=== PATIENT | male | born 2000 | race Caucasian/White ===

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

== ENCOUNTER 2022-07-11 19:38 | Emergency (ER) | payer SELFPAY ==
--- OUTSIDE RECORDS SUMMARY | 2022-07-11 19:42 | XMS REPORT | Continuity of Care Document ---
:2000 Author Organization [facility] t Address [address] [facility] [facility] [address] [place] [address] Support Name Relationship Address Phone Adriana Fam Grandparent [address] [phone] [place] [address] Care Team Providers Name Role Phone SHELLIE GARCIA Attending Clinician Unavailable Jesi Connolly DO Attending Clinician Doctor Unassigned, [place] Attending Clinician Unavailable José Carcamo Attending Clinician José HALL Attending Clinician Unavailable BABAR DUKE Attending Clinician Unavailable BABAR DUKE Admitting Clinician Unavailable Payers Payer Name Policy Type Policy Number Effective Date Expiration Date S youce [place]ICAID [place] [id number] 2018 00:00:00 [facility] [id number] 2018 00:00:00 [facility] [id number] 2019 00:00:00 Problems Condition Condition Condition Status Onset Resolution Last Treating Co mments Source Name Details Category Date Date Treatment Clinician Date Elevated Elevated Disease Active Unive rs bilirubin bilirubin 1- ity of 00:00: [address] Allergies, Adverse Reactions, Alerts Allergy Allergy Status Severity Reaction(s) Onset Inactive Treating Comm ents Source Name Type Date Date Clinician NO KNOWN Drug Active Univers ALLERGIE Class ity of [place] [facility] Social History Social Habit Start Date Stop Date Quantity Comments Source Exposure to Not sure [facility] SARS-CoV-2 (event) Medica l Branch Sex Assigned At [facility] Medical Branch Alcohol intake 2019-09-04 2019-09-04 [facility] 00:00:00 00:00:00 Medical Branch Tobacco Comment 2018-05-23 2018-05-23 Vapes. [facility] [place] 00:00:00 00:00:00 Medical Branch Smoking Status Start Date Stop Date Source Current every day smoker 2019-09-04 00:00:00 Uni versity of [facility] Medications Ordered Filled Start Stop Current Ordering Indication Dosage Frequency Signature Comments Components Source Medication Medication Date Date Medication? Clinician (SIG) Name Name ondansetron 2019-2019- No 4mg 4 mg, Slow Univers (ZOFRAN 09-03- IV Push, ity of (PF)) 14:15: 13:16 ONCE, 1 [place] injection 4 00 :00 dose, Beth Med ical mg 09/04/19 at Branch 0915, VANESSA NaCl 0.9% 2019- No 1000mL at 999 Uni vers (NS) bolus 09-03 mL/hr, ity of infusion 13:15: 13:59 1,000 mL, [place] as 1,000 mL 00 :00 IV Medical Infusion, [place] ONCE, 1 dose, Beth 09/04/19 at 0815, VANESSA ondansetron 2020-0 Yes [id number] 4mg Take 1 Univers (ZOFRAN 5-07 tablet by ity of ODT) 4 mg 00:00: mouth [place] disintegrat 00 every 8 Medic al ing tablet (eight) Branch hours as needed for Nausea and Vomiting (N/V). ondansetron 2019-0 2019- No 4mg 4 mg, Univ ers (ZOFRAN-ODT 05-23 Oral, ity of ) 23:00: 21:51 ONCE, 1 [place] disintegrat 00 :00 dose, Fri Med ical ing tablet 05/23/19 at [facility] 4 mg 1700, Routine ondansetron 2020-0 Yes [id number] 4mg Take 1 Univers (ZOFRAN 1-24 tablet by ity of ODT) 4 mg 00:00: mouth [place] disintegrat 00 every 8 Medic al ing tablet (eight) Branch hours as needed for Nausea and Vomiting (N/V). ondansetron 2020-0 Yes [id number] 4mg Take 1 Univers (ZOFRAN 1-24 tablet by ity of ODT) 4 mg 00:00: mouth [place] disintegrat 00 every 8 Medic al ing tablet (eight) Branch hours as needed for Nausea and Vomiting (N/V). ondansetron 2020- No [id number] 4mg Take 1 Univers (ZOFRAN 1-24 05-07 tablet by ity of ODT) 4 mg 00:00: 00:00 mouth [place] disintegrat 00 :00 every 8 Medic al ing tablet (eight) Branch hours as needed for Nausea and Vomiting (N/V). ibuprofen Yes [id number] 800mg Take 1 U nivers 800 mg 7-21 tablet by ity of tablet 00:00: mouth [place] 00 every 8 Medical (eight) Branch hours as needed (PAIN). ibuprofen Yes [id number] 800mg Take 1 U nivers 800 mg 7-21 tablet by ity of tablet 00:00: mouth [place] 00 every 8 Medical (eight) Branch hours as needed (PAIN). ibuprofen Yes [id number] 800mg Take 1 U nivers 800 mg 7-21 tablet by ity of tablet 00:00: mouth [place] 00 every 8 Medical (eight) Branch hours as needed (PAIN). ibuprofen 2019- No [id number] 800mg Take 1 Univers 800 mg 7-21 05-07 tablet by ity of tablet 00:00: 00:00 mouth [place] 00 :00 every 8 Medical (eight) Branch hours as needed (PAIN). Immunizations Ordered Immunization Filled Immunization Date Status Commen ts Source Name Name Influenza Virus 2018-05-23 Completed Universit y of [facility] 3+ 00:00:00 [facility] Influenza Virus 2018-05-23 Completed Universit y of [facility] IM 3+ 00:00:00 [facility] Influenza Virus 2018-05-23 Completed Universit y of Vaccine [facility] IM 3+ 00:00:00 [facility] Influenza Virus 2018-05-23 Completed Universit y of Vaccine [facility] IM 3+ 00:00:00 [facility] HEPATITIS A 2013-01-08 Completed University of 00:00:00 [facility] HPV 2013-01-08 Completed University of 00:00:00 [facility] HEPATITIS A 2013-01-08 Completed University of 00:00:00 [facility] HPV 2013-01-08 Completed University of 00:00:00 [facility] HEPATITIS A 2013-01-08 Completed University of 00:00:00 [facility] HPV 2013-01-08 Completed University of 00:00:00 [facility] HEPATITIS A 2013-01-08 Completed University of 00:00:00 [facility] HPV 2013-01-08 Completed University of 00:00:00 [facility] HEPATITIS A 2012-07-02 Completed University of 00:00:00 [facility] HPV 2012-07-02 Completed University of 00:00:00 [facility] Varicella 2012-07-02 Completed University of (varivax)(chicken 00:00:00 [place] M [facility]ical pox) Branch HEPATITIS A 2012-07-02 Completed University of 00:00:00 [facility] HPV 2012-07-02 Completed University of 00:00:00 [facility] Varicella 2012-07-02 Completed University of (varivax)(chicken 00:00:00 [place] M [facility]ical pox) Branch HEPATITIS A 2012-07-02 Completed University of 00:00:00 [facility] HPV 2012-07-02 Completed University of 00:00:00 [facility] Varicella 2012-07-02 Completed University of (varivax)(chicken 00:00:00 [place] M [place] pox) [place] HEPATITIS A 2012-07-02 Completed University of 00:00:00 [facility] HPV 2012-07-02 Completed University of 00:00:00 [facility] Varicella 2012-07-02 Completed University of (varivax)(chicken 00:00:00 [place] M [facility]ical pox) [place] Influenza Virus 2012-01-17 Completed Universit y of Vaccine 00:00:00 [facility] MMR 2012-01-17 Completed University of 00:00:00 [facility] Influenza Virus 2012-01-17 Completed Universit y of Vaccine 00:00:00 [facility] MMR 2012-01-17 Completed University of 00:00:00 [facility] Influenza Virus 2012-01-17 Completed Universit y of Vaccine 00:00:00 [facility] MMR 2012-01-17 Completed University of 00:00:00 [facility] Influenza Virus 2012-01-17 Completed Universit y of Vaccine 00:00:00 [facility] MMR 2012-01-17 Completed University of 00:00:00 [facility] Meningococcal 2011-12-15 Completed University of Vaccine 00:00:00 [facility] MMR 2011-12-15 Completed University of 00:00:00 [facility] Polio (IPV/OPV) 2011-12-15 Completed Universit y of 00:00:00 [facility] Tdap 2011-12-15 Completed University of 00:00:00 [facility] Varicella 2011-12-15 Completed University of (varivax)(chicken 00:00:00 [place] M [facility]ical pox) Branch Meningococcal 2011-12-15 Completed University of Vaccine 00:00:00 [facility] MMR 2011-12-15 Completed University of 00:00:00 [facility] Polio (IPV/OPV) 2011-12-15 Completed Universit y of 00:00:00 [facility] Tdap 2011-12-15 Completed University of 00:00:00 [facility] Varicella 2011-12-15 Completed University of (varivax)(chicken 00:00:00 [place] M [facility]ical pox) Branch Meningococcal 2011-12-15 Completed University of Vaccine 00:00:00 [facility] MMR 2011-12-15 Completed University of 00:00:00 [facility] Polio (IPV/OPV) 2011-12-15 Completed Universit y of 00:00:00 [facility] Tdap 2011-12-15 Completed University of 00:00:00 [facility] Varicella 2011-12-15 Completed University of (varivax)(chicken 00:00:00 [place] M edical pox) Branch Meningococcal 2011-12-15 Completed University of Vaccine 00:00:00 [facility] MMR 2011-12-15 Completed University of 00:00:00 [facility] Polio (IPV/OPV) 2011-12-15 Completed Universit y of 00:00:00 [facility] Tdap 2011-12-15 Completed University of 00:00:00 [facility] Varicella 2011-12-15 Completed University of (varivax)(chicken 00:00:00 [place] M edical pox) Branch H1n1 Vaccine 2009-05-11 Completed University o f 00:00:00 [facility] H1n1 Vaccine 2009-05-11 Completed University o f 00:00:00 [facility] H1n1 Vaccine 2009-05-11 Completed University o f 00:00:00 [facility] H1n1 Vaccine 2009-05-11 Completed University o f 00:00:00 [facility] H1n1 Vaccine 2009-04-07 Completed University o f 00:00:00 [facility] H1n1 Vaccine 2009-04-07 Completed University o f 00:00:00 [facility] H1n1 Vaccine 2009-04-07 Completed University o f 00:00:00 [facility] H1n1 Vaccine 2009-04-07 Completed University o f 00:00:00 [facility] Pneumococcal 7 2000 Completed University of Conjugate, PCV7 00:00:00 [place] [facility] ical (Prevnar7) Branch HIB 4 Dose Schedule 2000 Completed Unive rsity of 00:00:00 [facility] Hep B, Adol or Pedi 2000 Completed Unive rsity of Dosage 00:00:00 [facility] Pneumococcal 7 2000 Completed University of Conjugate, PCV7 00:00:00 [place] Med ical (Prevnar7) Branch HIB 4 Dose Schedule 2000 Completed Unive rsity of 00:00:00 [facility] Hep B, Adol or Pedi 2000 Completed Unive rsity of Dosage 00:00:00 [facility] Pneumococcal 7 2000 Completed University of Conjugate, PCV7 00:00:00 [place] Med ical (Prevnar7) Branch HIB 4 Dose Schedule 2000 Completed Unive rsity of 00:00:00 [facility] Hep B, Adol or Pedi 2000 Completed Unive rsity of Dosage 00:00:00 [facility] Pneumococcal 7 2000 Completed University of Conjugate, PCV7 00:00:00 [place] Med ical (Prevnar7) Branch HIB 4 Dose Schedule 2000 Completed Unive rsity of 00:00:00 [facility] Hep B, Adol or Pedi 2000 Completed Unive rsity of Dosage 00:00:00 [facility] DTAP 2000 Completed University of 00:00:00 [facility] DTAP 2000 Completed University of 00:00:00 [facility] DTAP 2000 Completed University of 00:00:00 [facility] DTAP 2000 Completed University of 00:00:00 [facility] Pneumococcal 7 2000 Completed University of Conjugate, PCV7 00:00:[address] [facility] ical (Prevnar7) Branch Polio (IPV/OPV) 2000 Completed Universit y of 00:00:00 [facility] DTAP 2000 Completed University of 00:00:00 [facility] DTAP 2000 Completed University of 00:00:00 [facility] HIB 4 Dose Schedule 2000 Completed Unive rsity of 00:00:00 [facility] Pneumococcal 7 2000 Completed University of Conjugate, PCV7 00:00:00 [place] Med ical (Prevnar7) Branch Polio (IPV/OPV) 2000 Completed Universit y of 00:00:00 [facility] HIB 4 Dose Schedule 2000 Completed Unive rsity of 00:00:00 [facility] Pneumococcal 7 2000 Completed University of Conjugate, PCV7 00:00:00 [place] Med ical (Prevnar7) Branch Polio (IPV/OPV) 2000 Completed Universit y of 00:00:00 [facility] DTAP 2000 Completed University of 00:00:00 [facility] HIB 4 Dose Schedule 2000 Completed Unive rsity of 00:00:00 [facility] Pneumococcal 7 2000 Completed University of Conjugate, PCV7 00:00:00 [place] Med ical (Prevnar7) Branch Polio (IPV/OPV) 2000 Completed Universit y of 00:00:00 [facility] DTAP 2000 Completed University of 00:00:00 [facility] HIB 4 Dose Schedule 2000 Completed Unive rsity of 00:00:00 [facility] Pneumococcal 7 2000 Completed University of Conjugate, PCV7 00:00:00 [place] Med ical (Prevnar7) Branch Polio (IPV/OPV) 2000 Completed Universit y of 00:00:00 [facility] DTAP 2000 Completed University of 00:00:00 [facility] DTAP 2000 Completed University of 00:00:00 [facility] HIB 4 Dose Schedule 2000 Completed Unive rsity of 00:00:00 [facility] Hep B, Adol or Pedi 2000 Completed Unive rsity of Dosage 00:00:00 [facility] Pneumococcal 7 2000 Completed University of Conjugate, PCV7 00:00:00 [place] [facility] ical (Prevnar7) Branch Polio (IPV/OPV) 2000 Completed Universit y of 00:00:00 [facility] HIB 4 Dose Schedule 2000 Completed Unive rsity of 00:00:00 [facility] Hep B, Adol or Pedi 2000 Completed Unive rsity of Dosage 00:00:00 [facility] Pneumococcal 7 2000 Completed University of Conjugate, PCV7 00:00:[address] [facility] (Prevnar7) Branch Polio (IPV/OPV) 2000 Completed Universit y of 00:00:00 [facility] DTAP 2000 Completed University of 00:00:00 [facility] HIB 4 Dose Schedule 2000 Completed Unive rsity of 00:00:00 [facility] Hep B, Adol or Pedi 2000 Completed Unive rsity of Dosage 00:00:00 [facility] Pneumococcal 7 2000 Completed University of Conjugate, PCV7 00:00:[address] [facility] ical (Prevnar7) Branch Polio (IPV/OPV) 2000 Completed Universit y of 00:00:00 [facility] DTAP 2000 Completed University of 00:00:00 [facility] HIB 4 Dose Schedule 2000 Completed Unive rsity of 00:00:00 [facility] Hep B, Adol or Pedi 2000 Completed Unive rsity of Dosage 00:00:00 [facility] Hep B, Adol or Pedi 2000 Completed Unive rsity of Dosage 00:00:00 [facility] Hep B, Adol or Pedi 2000 Completed Unive rsity of Dosage 00:00:00 [facility] Hep B, Adol or Pedi 2000 Completed Unive rsity of Dosage 00:00:00 [facility] Hep B, Adol or Pedi 2000 Completed Unive rsity of Dosage 00:00:00 [facility] Vital Signs Vital Name Observation Time Observation Value Comments Source Systolic blood 2019-09-04 14:00:00 138 mm[Hg] Univer sity of pressure [facility] Diastolic blood 2019-09-04 14:00:00 83 mm[Hg] Unive rsity of pressure [facility] Heart rate 2019-09-04 14:00:00 81 /min Universi ty of [facility] Respiratory rate 2019-09-04 14:00:00 15 /min Univ ersity of [place] [facility] Oxygen saturation in 2019-09-04 14:00:00 99 /min University of Arterial blood by [facility] Pulse oximetry Branch Body temperature 2019-09-04 12:57:00 36.56 Bhumika Univ ersity [facility] [place] [facility] Body height 2019-09-04 12:57:00 170.2 cm Universi ty [facility] [place] [facility] Body weight 2019-09-04 12:57:00 65.318 kg [facility]i ty [facility] [place] [facility] BMI 2019-09-04 12:57:00 22.55 kg/m2 [facility]i [facility] [place] [facility] Systolic blood 2019-09-04 14:00:00 138 mm[Hg] Univer sity of pressure [place] [facility] Diastolic blood 2019-09-04 14:00:00 83 mm[Hg] Unive rsity of pressure [place] [facility] Heart rate 2019-09-04 14:00:00 81 /min Universi ty [facility] [place] [facility] Respiratory rate 2019-09-04 14:00:00 15 /min Univ ersity of [place] [facility] Oxygen saturation in 2019-09-04 14:00:00 99 /min University of Arterial blood by [facility] Pulse oximetry Branch Body temperature 2019-09-04 12:57:00 36.56 Bhumika Univ ersity [facility] [place] [facility] Body height 2019-09-04 12:57:00 170.2 cm [facility]i ty [facility] [place] [facility] Body weight 2019-09-04 12:57:00 65.318 kg Universi ty [facility] [place] [facility] BMI 2019-09-04 12:57:00 22.55 kg/m2 [facility]i [facility] [place] [facility] Systolic blood 2019-05-23 21:26:00 144 mm[Hg] Univer sity of pressure [place] [facility] Diastolic blood 2019-05-23 21:26:00 84 mm[Hg] Unive rsity of pressure [place] [facility] Heart rate 2019-05-23 21:26:00 102 /min Universi ty [facility] [place] [facility] Body temperature 2019-05-23 21:26:00 36.94 Bhumika Univ ersity [facility] [place] [facility] Respiratory rate 2019-05-23 21:26:00 18 /min Univ ersity [facility] [place] [facility] Body height 2019-05-23 21:26:00 170.2 cm Universi ty [facility] [place] [facility] Body weight 2019-05-23 21:26:00 63.504 kg Universi ty of [place] [facility] [place] BMI 2019-05-23 21:26:00 21.93 kg/m2 Universi ty of [facility] Branch Oxygen saturation in 2019-05-23 21:26:00 98 /min University of Arterial blood by [facility] Pulse oximetry Branch Systolic blood 2019-05-23 21:26:00 144 mm[Hg] Univer sity of pressure [facility] Diastolic blood 2019-05-23 21:26:00 84 mm[Hg] Unive rsity of pressure [facility] Heart rate 2019-05-23 21:26:00 102 /min Universi ty of [facility] Body temperature 2019-05-23 21:26:00 36.94 Bhumika [facility] Res[facility] rate 2019-05-23 21:26:00 18 /min [facility] Body height 2019-05-23 21:26:00 170.2 cm Universi ty [facility] Body weight 2019-05-23 21:26:00 63.504 kg Universi ty [facility] Branch BMI 2019-05-23 21:26:00 21.93 kg/m2 Universi ty [facility] Oxygen saturation in 2019-05-23 21:26:00 98 /min University of Arterial blood by [facility] Pulse oximetry Branch Procedures Procedure Date / Time Performing Clinician Source Performed URINALYSIS 2019-09-04 14:00:00 Jesi Connolly [facility] LIPASE 2019-09-04 13:02:00 Jesi Connolly [facility] COMP. METABOLIC PANEL 2019-09-04 13:02:00 Jesi Connolly [facility] ([id number]) [facility] CBC WITH DIFFERENTIAL 2019-09-04 13:02:00 Jesi Connolly [facility] CORONAVIRUS COVID-19 2019-09-04 13:02:00 Jesi Connolly [facility] TESTING [facility] NOTICE OF PRIVACY 2019-09-04 12:45:12 [facility] Un[facility]igned, [facility] Branch CONSENT/REFUSAL FOR 2019-09-04 12:44:54 [facility] Un[facility]igned, [facility] Name Medical Branch NOTICE OF PRIVACY 2019-05-23 21:15:42 Doctor Unassigned, No [facility] Branch CONSENT/REFUSAL FOR 2019-05-23 21:15:23 [facility] Un[facility]igned, [facility] Name Medical Branch Encounters Start End Encounter Admission Attending Care Care Encounter Source Date/Time Date/Time Type Type Clinicians Facility Department ID 2021-02-24 Emergency [facility] [id number] Univers 20:10:34 ity of [facility] 2020-10-18 2020-10-18 Outpatient R MALENAIN [facility] [id number] [facility] 00:00:00 00:00:00 Elder KAVITHALoy murphy o f [facility] 2019-09-04 2019-09-04 [facility] [id number] 07:52:33 09:41:00 Jesi Chaudhary [id number] [place] 4.2.7.2.686 [place] [id number] [facility] 2019-09-04 2019-09-04 [facility] [id number] [facility] 07:52:33 09:41:00 Jesi Chaudhary [id number] ity of [place] 4.2.7.2.686 [facility] [id number] [place] [address] [place] 2019-09-04 2019-09-04 Orders Doctor NEVES [id number] 00:00:00 00:00:00 Only Unassigned, BENNY [id number] [place] [facility] 4.2.7.2.686 [id number] 2019-09-04 2019-09-04 Orders Doctor NEVES [id number] Univers 00:00:00 00:00:00 Only Unassigned, BENNY [id number] ity of [place] [facility] 4.2.7.2.686 [place] [id number] [facility] 009 Branch 2019-05-23 2019-05-23 Emergency José Hall [facility] [id number] 15:28:50 16:32:00 Ginger Chaudhary [id number] [place] 4.2.7.2.686 [place] [id number] 2019-05-23 2019-05-23 Emergency X José HALL [facility] ERT [id number] Univers 15:28:50 16:32:00 ity [facility] 2019-05-23 2019-05-23 Emergency José Hall [facility] [id number] Univers 15:28:50 16:32:00 Ginger Chaudhary [id number] i ty [facility] 4.2.7.2.686 [facility] [id number] [facility] 084 [place] 2019-05-23 2019-05-23 Orders Doctor EDINSON [id number] 00:00:00 00:00:00 Only Unassigned, BENNY [id number] [place] [facility] 4.2.7.2.686 [id number] 2019-05-23 2019-05-23 Orders Doctor EDINSON [id number] Univers 00:00:00 00:00:00 Only Unassigned, BENNY [id number] ity of [place] [facility] 4.2.7.2.686 [facility] [id number] [facility] 009 [place] 2018-11-17 2018-11-17 Emergency X SRIKANTH [facility] ERT [id number] Univers 17:55:16 19:35:00 BABAR [facility] Results Test Description Test Time Test Comments Results Result Comments Source Urinalysis 2019-09-04 14:23:00 Test Item Value Reference Range Interpretation Comme nts APPEARANCE (test code = Clear Clear 7943179994) COLOR (test code = 1302909910) Yellow Yellow PH (test code = 3189881228) 4.8-8.0 SP GRAVITY (test code = 1.003-1.030 1049416542) GLU U QUAL (test code = Normal Normal 9538375307) BLOOD (test code = 2712838125) Negative Negative KETONES (test code = 1194255945) Negative Negative PROTEIN (test code = 2887-8) Negative Negative UROBILIN (test code = Normal Normal 7907610510) BILIRUBIN (test code = Negative Negative 0128037127) NITRITE (test code = 3034845622) Negative Negative LEUK NIKO (test code = Negative Negative 9046300454) RBC/HPF (test code = 1139493543) See_Comment H [Automated message] The system which ge nerated this result transmit gee reference range: 0 - 3 HP F. The reference range was not used to interpret th is result as normal/abnormal . WBC/HPF (test code = 1289831147) <1 See_Comment [Automated message] The system which ge nerated this result transmit gee reference range: 0 - 5 HP F. The reference range was not used to interpret th is result as normal/abnormal . BACTERIA (test code = Negative Negative 7516500782) MUCOUS (test code = 8918693890) Slight Negative LPF A Lab Interpretation (test code = Abnormal 54625-3) [facility] [id number] 14:08:00 Test Item Value Reference Range Interpretation Comments SARS-CoV-2 (test code = Not Detected Not Detected 19739-9) MARIAMA (test code = MARIAMA) ID NOW COVID-19 Assay is an isothermal nucleic acid amplification test intended for the qualitative detection of nucleic acid from SARS-CoV-2 viral RNA in nasopharyngeal (RECRUITMENT ASSISTANT) specimens. It is used under Emergency Use Authorization (EUA) by FDA. The limit of detection (LOD) of the assay is 125 Genome Equivalents/mL. A positive result is indicative of the presence of SARS-CoV-2 RNA. ?Clinical correlation with patient history and other diagnostic information is necessary to determine patient infection status. A negative (Not Detected) result does not preclude SARS-CoV-2 infection. Clinical correlation with patient history and other diagnostic information should be used in patient management decisions. Invalid: Please collect a new specimen for repeat patient testing if clinically indicated. Lab Interpretation Normal (test code = 48944-0) [facility] Metabolic [id number] 13:44:00 Test Item Value Reference Range Interpretation Comments NA (test code = 141 mmol/L 135-145 6043770866) K (test code = 4.3 mmol/L 3.5-5 3277386394) CL (test code = 106 mmol/L 98-108 4120040183) CO2 TOTAL (test code = 27 mmol/L 23-31 1810456806) AGAP (test code = 2-16 6954993902) BUN (test code = 17 mg/dL 7-23 6574501055) GLUCOSE (test code = 101 mg/dL 70-110 2455304724) CREATININE (test code = 0.73 mg/dL 0.6-1.25 7386854279) TOTAL BILI (test code = 0.8 mg/dL 0.1-1.6 2892482933) CALCIUM (test code = 10.1 mg/dL 8.6-10.6 2623009983) T PROTEIN (test code = 8.0 g/dL 6.3-8.2 0665136496) ALBUMIN (test code = 5.1 g/dL 3.5-5 H 9650058647) ALK PHOS (test code = 68 U/L 34-122 1598303199) ALTv (test code = 31 U/L 5-50 2-6) AST(SGOT) (test code = 23 U/L 13-40 8362984655) eGFR Calculation mL/min/1.73m2 (Non-) (test code = 0058609524) eGFR Calculation mL/min/1.73m2 () (test code = 9407614336) MARIAMA (test code = MARIAMA) Association of Glomerular Filtration Rate (GFR) and Staging of Kidney Disease* + --+ --+ ------+| GFR (mL/min/1.73 m2) ?| With Kidney Damage ?| ?Without Kidney Damage+ --------+ --------+ +| ?>90 ?| ?Stage one ?| ? Normal ?+ ---+ ---+ -------+| ?60-89 ?| ?Stage two ?| ? Decreased GFR ? + --+ --+ ------+| ?30-59 ?| ?Stage three ?| ? Stage three ? + --+ --+ ------+| ?15-29 ?| ?Stage four ? | ? Stage four ?+ ---+ ---+ -------+| ?<15 (or dialysis) ? ?| ?Stage five ? | ? Stage five ?+ ---+ ---+ -------+ *Each stage assumes the associated GFR level has been in effect for at least three months. ?Stages 1 to 5, with or without kidney disease, indicate chronic kidney disease. Notes: Determination of stages one and two (with eGFR >59mL/min/1.73 m2) requires estimation of kidney damage for at least three months as defined by structural or functional abnormalities of the kidney, manifested by either:Pathological abnormalities or Markers of kidney damage (including abnormalities in the composition of the blood or urine or abnormalities in imaging tests). Lab Interpretation Abnormal (test code = 31182-1) [facility] HospitalLipase, [id number] 13:44:00 Test Item Value Reference Range Interpretation Comments LIPASE (test code = 6539890067) 36 U/L 0-220 Lab Interpretation (test code = Normal 12465-1) [facility] HospitalCBC WITH [id number] 13:35:00 Test Item Value Reference Range Interpretation Comments WBC (test code = See_Comment [Automated 3090-2) message] The sy stem which generated this result transmitted reference range : 4.20 - 10.70 10*3/?L. The reference range was not used to interpret this result as normal/abnormal . RBC (test code = See_Comment [Automated 949-8) message] The sy stem which generated this result transmitted reference range : 4.26 - 5.52 10*6/?L. The reference range was not used to interpret this result as normal/abnormal . HGB (test code = 15.1 g/dL 12.2-16.4 718-7) HCT (test code = 44.3 % 38.4-49.3 4544-3) MCV (test code = 90.0 fL 81.7-95.6 787-2) MCH (test code = 30.7 pg 26.1-32.7 785-6) MCHC (test code = 34.1 g/dL 31.2-35 786-4) RDW-SD (test code = 38.5 fL 38.5-51.6 51801-0) RDW-CV (test code = 11.7 % 12.1-15.4 L 788-0) PLT (test code = See_Comment [Automated 927-3) message] The sy stem which generated this result transmitted reference range : 150 - 328 10*3/ ?L. The reference r yvette was not used to interpret this result as normal/abnormal . MPV (test code = 9.9 fL 9.8-13 65553-0) NRBC/100 WBC (test See_Comment [Automat ed code = 8917386164) message] The system which generated this result transmitted reference range : 0.0 - 10.0 /100 WBCs. The refer ence range was not u sed to interpret th is result as normal/abnormal . NRBC x10^3 (test code <0.01 See_Comment [Auto mated = 9928652146) message] The s ystem which generated this result transmitted reference range : 10*3/?L. The reference range was not used to interpret this result as normal/abnormal . GRAN MAT (NEUT) % 48.9 % (test code = 770-8) IMM GRAN % (test code 0.40 % = 8998419076) LYMPH % (test code = 35.5 % 736-9) MONO % (test code = 10.6 % 5905-5) EOS % (test code = 3.8 % 713-8) BASO % (test code = 0.8 % 706-2) GRAN MAT x10^3(ANC) 2.31 10*3/uL 1.99-6.95 (test code = 2975949081) IMM GRAN x10^3 (test <0.03 0-0.06 code = 1562181925) LYMPH x10^3 (test code 1.68 10*3/uL 1.09-3.23 = 731-0) MONO x10^3 (test code 0.50 10*3/uL 0.36-1.02 = 742-7) EOS x10^3 (test code = 0.18 10*3/uL 0.06-0.53 711-2) BASO x10^3 (test code 0.04 10*3/uL 0.01-0.09 = 704-7) Lab Interpretation Abnormal (test code = 97944-6) [facility]"
[2022-07-11] MEDS ORDERED: ACETAMINOPHEN 500 MG TAB ONE (20:05)
[2022-07-11] MEDS ORDERED: IBUPROFEN 400 MG TAB ONE (20:05)
[2022-07-11] MEDS ORDERED: ONDANSETRON 4 MG/2 ML VIAL ONE (20:05)
[2022-07-11] MEDS ORDERED: NA CHLORIDE 0.9% 3,000 ML ONE (20:05)
[2022-07-11 20:23] LABS: Absolute Lymphocytes (CBC) 1.9 K/uL (0.7-4.9); Hematocrit 39.2 % (39.6-49.0); Lymphocytes % 18.2 % (15.3-44.8); MCV 85.9 fL (80-100); MPV 7.3 fL (7.6-11.3); RBC Red Blood Cell Count 4.57 M/uL (4.33-5.43)
[2022-07-11 20:29] LABS: Protime INR 1.16
[2022-07-11 20:39] LABS: Albumin 3.9 g/dL (3.4-5.0); Bilirubin Total 1.3 mg/dL (0.2-1.0); Potassium 3.1 mmol/L (3.5-5.1); Protein, Total 7.5 g/dL (6.4-8.2)
--- NOTE | 2022-07-11 20:49 | RAD REPORT ---
EXAM DESCRIPTION: [facility]07/11/2022 8:36 pm CLINICAL HISTORY: cough COMPARISON: none FINDINGS: The lungs appear clear of acute infiltrate. The heart is normal size IMPRESSION: No acute abnormalities displayed
[2022-07-11 21:04] LABS: SARS-COV-2 RT PCR NEGATIVE (NEGATIVE)
[2022-07-11 21:35] LABS: Urine Blood Trace-intact (Negative); Urine Glucose Negative (Negative); Urine Protein 1+ (Negative); Urine Specific Gravity 1.015 (1.005-1.030)
[2022-07-11 21:51] LABS: Urine Bacteria None Seen /HPF (<20); Urine Bilirubin NEGATIVE (Negative); Urine Blood Negative (Negative); Urine Clarity Clear (Clear); Urine Color Yellow (Yellow); Urine Glucose NEGATIVE (Negative); Urine Granular Casts 0-5 /LPF (None Seen); Urine Mucus 1+ /HPF (None Seen); Urine Protein TRACE (Negative); Urine RBC <5 /HPF (None Seen); Urine Urobilinogen 3+ (Normal); Urine pH 6.5 (5.0-7.0)
[2022-07-11 21:52] LABS: Barbiturates NEGATIVE (NEGATIVE); Benzodiazepines NEGATIVE (NEGATIVE); Cocaine NEGATIVE (NEGATIVE); METHAMPHETAM NEGATIVE (NEGATIVE); Methadone NEGATIVE (NEGATIVE); Opiates NEGATIVE (NEGATIVE); Phencyclidine NEGATIVE (NEGATIVE); THC Cannibis NEGATIVE (NEGATIVE)
--- NOTE | 2022-07-11 22:06 | ER ---
Nurse's Notes [facility] Name: Darrell Carr III Age: 22 yrs Sex: Male : 2000 Arrival Date: 07/11/2022 Time: 19:47 Bed 3 Private MD: Diagnosis: Fever, unspecified;Dehydration;Acute viral illness, acute dehydration, moderate dehydration, postural syncope, sinus tachycardia, febrile illness, acute viral bronchitis Presentation: 07/11 19:48 Chief complaint: Patient states: syncopal episode at home lasting roughly 30 seconds. lg3 cough, fever, nausea X2 days. Coronavirus screen: Client denies travel out of the [place] in the last 14 days. Client presents with at least one sign or symptom that may indicate coronavirus-19. Standard/surgical mask placed on the client. Ebola Screen: No symptoms or risks identified at this time. Initial Sepsis Screen: Does the patient meet any 2 criteria? RR > 20 per min. Temp <36.0*C (96.8*F)) or > 38.3*C (100.9*F). HR > 90 bpm. Yes Does the patient have a suspected source of infection? Yes: Productive cough/pneumonia. Risk Assessment: Do you want to hurt yourself or someone else? Patient reports no desire to harm self or others. Onset of symptoms was July 09, 2022. 19:48 Method Of Arrival: EMS: [facility] lg3 19:48 Acuity: LORY 2 lg3 Triage Assessment: 19:53 General: Appears in no apparent distress. uncomfortable, Behavior is calm, cooperative. lg3 Pain: Complains of pain in throat, generalized body aches. EENT: No deficits noted. No signs and/or symptoms were reported regarding the EENT system. Neuro: No deficits noted. Briceño Agitation-Sedation Scale (RASS): 0 - Alert and Calm Level of Consciousness is awake, alert, obeys commands, Oriented to person, place, time, situation. Cardiovascular: No deficits noted. Denies chest pain, Capillary refill < 3 seconds Clubbing of nail beds is absent JVD is absent Patient's skin is warm and dry. Rhythm is sinus tachycardia. Respiratory: Reports cough that is persistent pain with cough Airway is patent Respiratory effort is even, unlabored, Respiratory pattern is tachypnea Breath sounds are clear bilaterally. GI: No deficits noted. Abdomen is round non-distended, Reports nausea. : No deficits noted. No signs and/or symptoms were reported regarding the genitourinary system. Derm: No deficits noted. Skin is intact, is healthy with good turgor, Skin is dry, Skin is normal, Skin temperature is hot. Musculoskeletal: No deficits noted. Circulation, motion, and sensation intact. Range of motion: intact in all extremities. Historical: - Allergies: 19:53 No Known Allergies; lg3 - Home Meds: 19:53 None [Active]; lg3 - PMHx: 19:53 None; lg3 - PSHx: 19:53 None; lg3 - Immunization history:: Adult Immunizations up to date, Client reports having NOT received the Covid vaccine. Flu vaccine is not up to date. - Social history:: Smoking status: Patient denies any tobacco usage or history of. Patient uses alcohol, occasionally. Patient/guardian denies using street drugs. - Family history:: not pertinent. Screenin:56 [facility] ED Fall Risk Assessment (Adult) History of falling in the last 3 months, lg3 including since admission No falls in past 3 months (0 pts). Abuse screen: Denies threats or abuse. Denies injuries from another. Nutritional screening: No deficits noted. Tuberculosis screening: No symptoms or risk factors identified. Assessment: 19:56 General: see triage assessment . lg3 21:03 Reassessment: Patient appears in no apparent distress at this time. No changes from lg3 previously documented assessment. Patient and/or family updated on plan of care and expected duration. Pain level reassessed. Patient is alert, oriented x 3, equal unlabored respirations, skin warm/dry/pink. Vital Signs: 19:48 BP 132 / 88; Pulse 120; Resp 20; Temp 102.3; Pulse Ox 96% on R/A; Weight 90.72 kg (R); lg3 Height 5 ft. 7 in. (R); Pain 6/10; 21:03 BP 125 / 80; Pulse 90; Resp 15; Temp 100.3(O); Pulse Ox 99% on R/A; lg3 21:04 Temp 100.3(O); lg3 21:05 Temp 100.3(O); lg3 21:48 BP 128 / 78; Pulse 92; Resp 19; Pulse Ox 98% on R/A; kd3 19:48 Body Mass Index 31.32 (90.72 kg, 170.18 cm) lg3 19:48 Pain Scale: Adult lg3 ED Course: 19:47 Patient arrived in ED. rv1 19:48 Nic Salgado MD is Attending Physician. sp4 19:48 Amaris Stone, RN is Primary Nurse. lg3 19:53 Triage completed. lg3 19:53 Arm band placed on right wrist. lg3 19:56 Patient has correct armband on for positive identification. Placed in gown. Bed in low lg3 position. Call light in reach. Side rails up X 1. Client placed on continuous cardiac and pulse oximetry monitoring. NIBP monitoring applied. library monitor on. Door closed. Noise minimized. Family accompanied patient. 19:56 Maintain EMS IV. Dressing intact. Good blood return noted. Site clean \T\ dry. Gauge \T\ lg 3 site: 20 RAC. 20:14 Ptt, Activated Sent. kd3 20:14 Protime (+inr) Sent. kd3 20:14 Lactate w/ 2H reflex if indic. Sent. kd3 20:14 CMP Sent. kd3 20:15 CBC with Diff Sent. kd3 20:38 Chest Single View XRAY In Process Unspecified. EDMS Administered Medications: 20:17 Drug: Ondansetron IVP 8 mg Route: IVP; Site: right antecubital; lg3 21:04 Follow up: Response: No adverse reaction; Marked relief of symptoms; Nausea is decreasedlg3 20:17 Drug: Ibuprofen PO 800 mg Route: PO; lg3 21:04 Follow up: Temp 100.3 Oral; Response: No adverse reaction; Marked relief of symptoms; lg3 Temperature is decreased 20:17 Drug: Acetaminophen PO 1000 mg Route: PO; lg3 21:05 Follow up: Temp 100.3 Oral; Response: No adverse reaction; Marked relief of symptoms; lg3 Temperature is decreased 20:18 Drug: NS 0.9% IV (30 ml/kg) 30 ml/kg Route: IV; Rate: bolus; Site: right antecubital; lg3 Outcome: 22:06 Discharge ordered by sp4 Signatures: Dispatcher [employer] EDMS Amaris Stone, RN RN lg3 Roseanne Rojo, RN RN kd3 Holly Martins rv1 Nic Salgado MD MD sp4
--- NOTE | 2022-07-11 22:07 | EDPHYS ---
Physician Documentation [facility] Name: Darrell Carr III Age: 22 yrs Sex: Male : 2000 Arrival Date: 07/11/2022 Time: 19:47 Bed 3 Private MD: ED Physician Nic Salgado HPI: 07/11 19:57 This 22 yrs old Male presents to ER via EMS with complaints of Fever and sp4 syncope. 19:57 22-year-old male with no significant past medical history presents with 4 days of sp4 fever, cough, sore throat, feeling unwell overall, fatigue and also today patient manifested with vomiting and syncope at home. Patient states he got up became dizzy and lightheaded and fell to the floor and was out for estimated 30 seconds, on arrival patient is tachycardic and febrile at 102.3. Patient denied history of past medical illness, denied medical allergies, states he is not been vaccinated for flu and COVID in the last 12 months. . Patient denied any sick contacts . Historical: - Allergies: 19:53 No Known Allergies; lg3 - Home Meds: 19:53 None [Active]; lg3 - PMHx: 19:53 None; lg3 - PSHx: 19:53 None; lg3 - Immunization history:: Adult Immunizations up to date, Client reports having NOT received the Covid vaccine. Flu vaccine is not up to date. - Social history:: Smoking status: Patient denies any tobacco usage or history of. Patient uses alcohol, occasionally. Patient/guardian denies using street drugs. - Family history:: not pertinent. ROS: 19:57 Constitutional: Negative for weight loss, positive for fever, chills, fatigue, malaise sp4 and syncope Eyes: Negative for injury, pain, redness, and discharge, ENT: Negative for injury, and discharge, positive for sore throat, pain on swallowing, Neck: Negative for injury, pain, and swelling, Cardiovascular: Negative for chest pain, palpitations, and edema, positive for syncope and tachycardia Respiratory: Negative for wheezing, and pleuritic chest pain, positive for shortness of breath and cough Abdomen/GI: Negative for abdominal pain, diarrhea, and constipation, positive for nausea vomiting Back: Negative for injury and pain, : Negative for injury, bleeding, discharge, and swelling, MS/Extremity: Negative for injury and deformity, Skin: Negative for injury, rash, and discoloration, Neuro: Negative for headache, weakness, numbness, tingling, and seizure, positive for syncope Psych: Negative for depression, anxiety, suicide ideation, homicidal ideation, and hallucinations, Allergy/Immunology: Negative for hives, rash, and allergies, Endocrine: Negative for neck swelling, polydipsia, polyuria, polyphagia, and marked weight changes, Hematologic/Lymphatic: Negative for swollen nodes, abnormal bleeding, and unusual bruising. Exam: 19:57 Constitutional: This is a well developed, well nourished patient who is awake, alert, sp4 patient is febrile, tachycardic, but nontoxic. Head/Face: Normocephalic, atraumatic. Eyes: Pupils equal round and reactive to light, extra-ocular motions intact. Lids and lashes normal. Conjunctiva and sclera are non-icteric and not injected. Cornea within normal limits. Periorbital areas with no swelling, redness, or edema. ENT: Nares patent. No nasal discharge, no septal abnormalities noted. Tympanic membranes are normal and external auditory canals are clear. Oropharynx with no exudates, or evidence of obstruction, uvula midline. Mucous membranes moist. There is posterior pharyngeal erythema, bilateral tonsillar enlargement and erythema without exudate Neck: Trachea midline, no thyromegaly or masses palpated, and no cervical lymphadenopathy. Supple, full range of motion without nuchal rigidity, or vertebral point tenderness. No Meningismus. Chest/axilla: Normal chest wall appearance and motion. Nontender with no deformity. No lesions are appreciated. Cardiovascular: Regular and rhythm with a normal S1 and S2. No gallops, murmurs, or rubs. Normal PMI, no JVD. No pulse deficits. Tachycardia present Respiratory: Lungs have equal breath sounds bilaterally, clear to auscultation and percussion. No rales, rhonchi or wheezes noted. No increased work of breathing, no retractions or nasal flaring. Abdomen/GI: Soft, non-tender, with normal bowel sounds. No distension or tympany. No guarding or rebound. No evidence of tenderness throughout. Back: No spinal tenderness. No costovertebral tenderness. Full range of motion. Skin: Warm, dry with normal turgor. Normal color with no rashes, no lesions, and no evidence of cellulitis. MS/ Extremity: Pulses equal, no cyanosis. Neurovascular intact. Full, normal range of motion. Neuro: Awake and alert, GCS 15, oriented to person, place, time, and situation. Cranial nerves II-XII grossly intact. Motor strength 5/5 in all extremities. Sensory grossly intact. Cerebellar exam normal. Normal gait. Psych: Awake, alert, with orientation to person, place and time. Behavior, mood, and affect are within normal limits. 21:18 ECG was reviewed by the Attending Physician. EKG time 2020 normal sinus rhythm at the sp4 rate of 89, no ST elevation or depression, no ectopy, normal intervals, overall normal EKG Vital Signs: 19:48 BP 132 / 88; Pulse 120; Resp 20; Temp 102.3; Pulse Ox 96% on R/A; Weight 90.72 kg (R); lg3 Height 5 ft. 7 in. (R); Pain 6/10; 21:03 BP 125 / 80; Pulse 90; Resp 15; Temp 100.3(O); Pulse Ox 99% on R/A; lg3 21:04 Temp 100.3(O); lg3 21:05 Temp 100.3(O); lg3 21:48 BP 128 / 78; Pulse 92; Resp 19; Pulse Ox 98% on R/A; kd3 19:48 Body Mass Index 31.32 (90.72 kg, 170.18 cm) lg3 19:48 Pain Scale: Adult lg3 MDM: 21:06 Patient medically screened. sp4 21:18 Differential Diagnosis sepsis, flu, Postural syncope, COVID-19, common cold, acute sp4 febrile illness, acute pneumonia. Data reviewed: vital signs, nurses notes, EKG. 22:02 Data reviewed: lab test result(s), cardiac enzymes, CBC, drug level(s), electrolytes, sp4 Flu: hepatic panel, urinalysis, urine drug screen, COVID-19 and strep swab negative, radiologic studies, plain films. ED course: Patient has improved after IV hydration, IV and p.o. medications for fever and nausea, COVID flu and strep are negative chest x-ray is clear, there is no sign of severe dehydration and EKG is unremarkable. Patient is stable for discharge home with p.o. ibuprofen and Tylenol as needed fever also as needed Zofran for nausea and 3-day work release, will advise to increase p.o. fluids at home and practice bedrest for the next 3 days . 07/11 19:55 Order name: EKG; Complete Time: 19:56 [facility] 07/11 19:55 Order name: Blood Culture Adult (2) [facility] 07/11 19:56 Order name: Urinalysis W/Microscopic 07/11 19:55 Order name: O2 Sat Monitoring; Complete Time: 20:15 [facility] 07/11 19:55 Order name: O2 Per Protocol; Complete Time: 20:15 [facility] 07/11 19:55 Order name: Labs collected and sent; Complete Time: 20:15 [facility] 07/11 19:55 Order name: IV Saline Lock - Large Bore; Complete Time: 20:15 [facility] 07/11 19:55 Order name: Cardiac monitoring; Complete Time: 20:15 [facility] 07/11 19:55 Order name: Accucheck; Complete Time: 20:15 [facility] 07/11 19:55 Order name: EKG - Nurse/Tech; Complete Time: 20:18 07/11 19:55 Order name: Vital Signs; Complete Time: 20:18 07/11 19:55 Order name: CBC with Diff; Complete Time: 21:12 [facility] 07/11 19:55 Order name: CMP; Complete Time: 21:12 07/11 19:55 Order name: Protime (+inr); Complete Time: 21:12 [facility] 07/11 19:55 Order name: Lactate w/ 2H reflex if indic.; Complete Time: 21:12 07/11 19:55 Order name: Ptt, Activated; Complete Time: 21:12 [facility] 07/11 19:56 Order name: COVID-19/FLU A+B; Complete Time: 21:12 [facility] 07/11 19:55 Order name: Chest Single View XRAY; Complete Time: 21:12 07/11 19:56 Order name: Strep; Complete Time: 21:27 [facility] 07/11 21:30 Order name: Urine Drug Screen 07/11 20:19 Order name: Glucose, Ancillary Testing; Complete Time: 21:12 EDMS 07/11 21:16 Order name: Throat Culture EDMS 07/11 21:36 Order name: Urine Dipstick-Ancillary; Complete Time: 22:02 EDMS 07/11 21:41 Order name: Urinalysis W/Microscopic; Complete Time: 22:02 EDMS 07/11 21:41 Order name: Urine Drug Screen; Complete Time: 22:02 EDMS EC:18 Rate is 89 beats/min. Rhythm is regular. QRS [place] is Normal. [place] interval is normal. QRS sp4 interval is normal. QT interval is normal. T waves are Normal. No ST changes noted. Clinical impression: Normal ECG. Interpreted by me. Administered Medications: 20:17 Drug: Ondansetron IVP 8 mg Route: IVP; Site: right antecubital; lg3 21:04 Follow up: Response: No adverse reaction; Marked relief of symptoms; Nausea is decreasedlg3 20:17 Drug: Ibuprofen PO 800 mg Route: PO; lg3 21:04 Follow up: Temp 100.3 Oral; Response: No adverse reaction; Marked relief of symptoms; lg3 Temperature is decreased 20:17 Drug: Acetaminophen PO 1000 mg Route: PO; lg3 21:05 Follow up: Temp 100.3 Oral; Response: No adverse reaction; Marked relief of symptoms; lg3 Temperature is decreased 20:18 Drug: NS 0.9% IV (30 ml/kg) 30 ml/kg Route: IV; Rate: bolus; Site: right antecubital; lg3 Disposition Summary: 07/11/22 22:06 Discharge Ordered Location: Home sp4 Problem: new sp4 Symptoms: have improved sp4 Condition: Stable sp4 Diagnosis - Fever, unspecified sp4 - Dehydration sp4 - Acute viral illness, acute dehydration, moderate dehydration, postural syncope, sp4 sinus tachycardia, febrile illness, acute viral bronchitis Followup: sp4 - With: Private Physician - When: 5 - 6 days - Reason: Recheck today's complaints Forms: - Medication Reconciliation Form sp4 - Thank You Letter sp4 - Antibiotic Education sp4 - Prescription Opioid Use sp4 Signatures: Dispatcher [employer] Amaris Wren RN RN lg3 Nic Salgado MD MD sp4
[2022-07-12 03:46] VITALS: TEMP 100.3
[2022-07-12 03:49] VITALS: O2SAT 98
[2022-07-12 03:50] VITALS: BP 126/78
--- NOTE | 2022-07-12 13:21 | EKG ---
Test Date: 2022-07-11 Test Time: 20:20:11 Director On Air: WOO MEASUREMENT RESULTS: Intervals: Rate: 89 OH: 126 QRSD: 88 QT: 314 QTc: 382 [place]: P: 55 OH: 126 QRS: 80 T: 22 INTERPRETIVE STATEMENTS: Normal sinus rhythm T wave abnormality, consider inferior ischemia Abnormal ECG No previous ECG available for comparison Electronically Signed On 07-12-22 13:19:30 CDT by Avery Gregg
== END 2022-07-11 22:41 | disposition home or self-care (01) ==
LOC: ER 19:38
DX: J20.8 Acute bronchitis due to other specified organisms (principal); E86.0 Dehydration; R55 Syncope and collapse; R00.0 Tachycardia, unspecified; Z20.822 Contact with and (suspected) exposure to COVID-19
CPT/HCPCS: 0240U; 36415; 71045; 80053; 80307; 81001; 81003; 82947; 83605; 85025; 85610; 85730; 87040; 87070; 87081; 93005; 96365; 96366; 96375; 99284; J2405; J7030